=== PATIENT | female | born 1975 | race Caucasian/White ===

== ENCOUNTER 2023-05-20 03:14 | Emergency (ER) | payer OTHER, SELFPAY ==
[2023-05-20 03:14] VITALS: BMI 22.9
[2023-05-20 03:23] VITALS: BP 124/70
[2023-05-20 03:54] LABS: % Basophils 0.6 % (0-2); % Eosinophils 0.3 % (0-6); % Immature Granulocytes 0.3 % (0-0.5); % Lymphocytes 18.7 % (20.5-51.1); % Monocytes 6.1 % (1.7-9.3); Absolute Lymphocytes 1.2 10^3/uL (1.2-3.4); Absolute Monocytes 0.4 10^3/uL (0.1-0.6); Absolute Neutrophils 4.9 10^3/uL (1.4-6.5); Hematocrit 38.3 % (37.0-47.0); Hemoglobin 13.7 g/dL (12.0-16.0); Mean Corp Hgb Conc. 35.8 g/dL (33.0-37.0); Mean Corpuscular Hgb 31.9 pg (27.0-31.0); Mean Corpuscular Volume 89.3 fL (81.0-99.0); Mean Platelet Volume 11.3 fL (7.4-10.4); Nucleated Red Blood Cells % 0 %; Platelet Count 234 10^3/uL (130-400); Red Blood Cell Count 4.29 10^6/uL (4.20-5.40); Red Cell Dist. Width 13.5 % (11.5-14.5); White Blood Cell Count 6.6 10^3/uL (4.8-10.8)
[2023-05-20 04:18] LABS: ALT (SGPT) 21 U/L (0-35); AST (SGOT) 30 U/L (14-36); Albumin 5.2 g/dl (3.5-5.0); Alkaline Phosphatase 82 U/L (38-126); Blood Urea Nitrogen 20 mg/dl (7-17); Calcium 9.5 mg/dl (8.4-10.2); Carbon Dioxide 25 mmol/L (22-30); Chloride 102 mmol/L (98-107); Glucose 132 mg/dl (70-99); Potassium 3.9 mmol/L (3.5-5.1); Sodium 136 mmol/L (135-145); Total Bilirubin 1.6 mg/dl (0.2-1.3); Total Protein 7.9 g/dl (6.3-8.2); eGFR > 60.00
[2023-05-20] MEDS: MORPHINE SULFATE 4 MG IV ×2 (04:49→07:40)
[2023-05-20] MEDS: ZOFRAN 4 MG IV ×3 (04:49→09:29)
--- NOTE | 2023-05-20 05:12 | ED.GENMED ---
History of Present Illness
<Charlotte RosadowsonISMAEL - Last Filed: 05/20/23 05:29>
General
Chief Complaint: Abdominal Pain
Source: patient
Exam Limitations: none
Time Seen by Provider: 05/20/23 04:45
Nursing documentation reviewed up to this point in time: agreed with
Travel History
Have you had any contact with someone who has COVID-19?: No
Do you have any symptoms of coronavirus? Fever > 100 degrees, chills, cough, shortness of breath, sore throat, loss of taste or smell, muscle aches, or headache?: No
History of Present Illness
History of Present Illness:
patient is a 47 y/o female presenting [facility] RLQ pain x 10 hours. patient admits the pain is localized to her RLQ with radiation to the LLQ and umbilcus. patient describes the pain as crampy and pressure like. patient admtis the pain has gotten
progressively worse throughout the day. Patient denies any beltran in diet or any change in abdominal pain with food. Patient admits to nasuea without any episodes of vomiting. Patient denies any fever but admits to sensation of chills. Patient denies
CP, SOB. Patietn admits to alcohol intake saturday night. patient denies smoking, change in diet or medications. Patient admits to sick contacts with work but denies any recent travel.
<Brain Velazquez DO - Last Filed: 05/20/23 13:45>
History of Present Illness
History of Present Illness:
patient is a 47 y/o female presenting [facility] RLQ pain x 10 hours. patient admits the pain is localized to her RLQ with radiation to the LLQ and umbilcus. patient describes the pain as crampy and pressure like. patient admtis the pain has gotten
progressively worse throughout the day. Patient denies any beltran in diet or any change in abdominal pain with food. Patient admits to nasuea without any episodes of vomiting. Patient denies any fever but admits to sensation of chills. Patient denies
CP, SOB. Jaun admits to alcohol intake saturday night. patient denies smoking, change in diet or medications. Patient admits to sick contacts with work but denies any recent travel. Although large amount of stool was noted on CT, the patient
states she had a large bowel movement yesterday. She states he was going to try to drink hot tea to help have a bowel movement I also suggested she try MiraLAX
Review of Systems
<ISMAEL Syed - Last Filed: 05/20/23 05:29>
Review of Systems
All Other Systems: Not applicable
Constitutional: Reports chills
EENT: Reports no symptoms
Respiratory: Reports no symptoms
Cardiac: Reports no symptoms
ABD/GI: Reports abdominal pain (RLQ and umbilicus, + psoas sign, positive rovsing sign) and nausea
: Reports no symptoms
Musculoskeletal: Reports no symptoms
Skin: Reports no symptoms
Neurological: Reports no symptoms
Endocrine: Reports no symptoms
Hematologic/Lymphatic: Reports no symptoms
Psychiatric: Reports no symptoms
Phy Exam
<ISMAEL Syed - Last Filed: 05/20/23 05:29>
General Physical Exam
General Presentation: well appearing and no apparent distress
General Skin: warm and dry
General Habitus: normal
General Mental: alert
General Hydration: appears well hydrated
ENT Exam
ENT Exam: EOMI, pharynx normal, neck supple and normocephalic
Eye Exam
Eye Exam: PERRL, cornea clear and conjunctiva normal
Cardiovascular Exam
Cardiovascular Exam: regular rate/rhythm, no edema, no murmur and normal peripheral pulses
Pulmonary Exam
Pulmonary Exam: lungs clear, no respiratory distress, no rales, no crackles, no rhonchi, no stridor, no wheezing and no cough
Gastrointestinal Exam
Gastrointestinal Exam: guarding and tender (RLQ with positive psoas and rovsing sign )
Palpation: left lower quadrant: Mild tenderness and right lower quadrant: Moderate tenderness
Neurological Exam
Neurological Exam: alert, oriented x3, no motor deficits and speech normal
Musculoskeletal Exam
Musculoskeletal Exam: full ROM and no edema
Skin Exam
Skin Exam: normal color, warm/dry, no rash and no petechia
Psychiatric Exam
Psychiatric Exam: normal mood/affect
Course
<ISMAEL Syed - Last Filed: 05/20/23 05:29>
Orders/Labs/Results
Orders:
Orders
05/20/23 03:44
CBC/With Diff [Complete Blood Count/With Diff] Urgent
CMP [Comprehensive Metabolic Panel] Urgent
05/20/23 04:45
Morphine Sulfate 4 mg IV NOW STA
Ondansetron Injectable [Zofran] 4 mg IV NOW STA
05/20/23 05:20
Iohexol [Omnipaque] See Protocol PO NOW STA
05/20/23 05:21
CT Abd/pel W Iv And Oral Contr Urgent
Comment:
Reason For Exam: RLQ abd pain
05/20/23 06:39
Morphine Sulfate 4 mg IV NOW STA
Ondansetron Injectable [Zofran] 4 mg IV NOW STA
05/20/23 09:23
HYDROmorphone [Dilaudid] 0.5 mg IV NOW STA
05/20/23 09:25
Ondansetron Injectable [Zofran] 4 mg .ROUTE .STK-MED ONE
05/20/23 09:28
Ondansetron Injectable [Zofran] 4 mg IV NOW STA
05/20/23 10:52
US Pelvis Transvaginal Only Urgent
Reason For Exam: R pelvis pain fluid noted on R on CT
05/20/23 12:32
Test Result ONCE
05/20/23 12:37
HCG, Urine Qualitative Screen Urgent
Date Specimen was Collected: 05/20/23
Time Specimen was Collected: 12:36
Urinalysis Reflex To Culture Urgent
Date Specimen was Collected: 05/20/23
Time Specimen was Collected: 12:36
Abnormal Lab Results
05/20/23
03:44
MCH 31.9 H pg
(27.0-31.0)
MPV 11.3 H fL
(7.4-10.4)
Lymphocytes % 18.7 L %
(20.5-51.1)
BUN 20 H mg/dl
(7-17)
Glucose 132 H mg/dl
(70-99)
Total Bilirubin 1.6 H mg/dl
(0.2-1.3)
Albumin 5.2 H g/dl
(3.5-5.0)
05/20/23 03:44
05/20/23 03:44
Vital Signs
Initial and Last Documented VS:
Initial Vital Signs
Temp Pulse Resp BP Pulse Ox
97.8 F 104 22 124/70 100
05/20/23 03:23 05/20/23 03:23 05/20/23 03:23 05/20/23 03:23 05/20/23 03:23
Last Documented Vital Signs
Temp Pulse Resp BP Pulse Ox
97.8 F 104 22 124/70 100
05/20/23 03:23 05/20/23 03:23 05/20/23 03:23 05/20/23 03:23 05/20/23 03:23
Gabrielalt;Izaiah Garcia DO - Last Filed: 05/20/23 06:56>
Orders/Labs/Results
Orders:
Orders
05/20/23 03:44
CBC/With Diff [Complete Blood Count/With Diff] Urgent
CMP [Comprehensive Metabolic Panel] Urgent
05/20/23 04:45
Morphine Sulfate 4 mg IV NOW STA
Ondansetron Injectable [Zofran] 4 mg IV NOW STA
05/20/23 05:20
Iohexol [Omnipaque] See Protocol PO NOW STA
05/20/23 05:21
CT Abd/pel W Iv And Oral Contr Urgent
Comment:
Reason For Exam: RLQ abd pain
05/20/23 06:39
Morphine Sulfate 4 mg IV NOW STA
Ondansetron Injectable [Zofran] 4 mg IV NOW STA
05/20/23 09:23
HYDROmorphone [Dilaudid] 0.5 mg IV NOW STA
05/20/23 09:25
Ondansetron Injectable [Zofran] 4 mg .ROUTE .STK-MED ONE
05/20/23 09:28
Ondansetron Injectable [Zofran] 4 mg IV NOW STA
05/20/23 10:52
US Pelvis Transvaginal Only Urgent
Reason For Exam: R pelvis pain fluid noted on R on CT
05/20/23 12:32
Test Result ONCE
05/20/23 12:37
HCG, Urine Qualitative Screen Urgent
Date Specimen was Collected: 05/20/23
Time Specimen was Collected: 12:36
Urinalysis Reflex To Culture Urgent
Date Specimen was Collected: 05/20/23
Time Specimen was Collected: 12:36
Abnormal Lab Results
05/20/23
03:44
MCH 31.9 H pg
(27.0-31.0)
MPV 11.3 H fL
(7.4-10.4)
Lymphocytes % 18.7 L %
(20.5-51.1)
BUN 20 H mg/dl
(7-17)
Glucose 132 H mg/dl
(70-99)
Total Bilirubin 1.6 H mg/dl
(0.2-1.3)
Albumin 5.2 H g/dl
(3.5-5.0)
05/20/23 03:44
05/20/23 03:44
Vital Signs
Initial and Last Documented VS:
Initial Vital Signs
Temp Pulse Resp BP Pulse Ox
97.8 F 104 22 124/70 100
05/20/23 03:23 05/20/23 03:23 05/20/23 03:23 05/20/23 03:23 05/20/23 03:23
Last Documented Vital Signs
Temp Pulse Resp BP Pulse Ox
97.8 F 104 22 124/70 100
05/20/23 03:23 05/20/23 03:23 05/20/23 03:23 05/20/23 03:23 05/20/23 03:23
<Brain Velazquez DO - Last Filed: 05/20/23 13:45>
Orders/Labs/Results
Orders:
Orders
05/20/23 03:44
CBC/With Diff [Complete Blood Count/With Diff] Urgent
CMP [Comprehensive Metabolic Panel] Urgent
05/20/23 04:45
Morphine Sulfate 4 mg IV NOW STA
Ondansetron Injectable [Zofran] 4 mg IV NOW STA
05/20/23 05:20
Iohexol [Omnipaque] See Protocol PO NOW STA
05/20/23 05:21
CT Abd/pel W Iv And Oral Contr Urgent
Comment:
Reason For Exam: RLQ abd pain
05/20/23 06:39
Morphine Sulfate 4 mg IV NOW STA
Ondansetron Injectable [Zofran] 4 mg IV NOW STA
05/20/23 09:23
HYDROmorphone [Dilaudid] 0.5 mg IV NOW STA
05/20/23 09:25
Ondansetron Injectable [Zofran] 4 mg .ROUTE .STK-MED ONE
05/20/23 09:28
Ondansetron Injectable [Zofran] 4 mg IV NOW STA
05/20/23 10:52
US Pelvis Transvaginal Only Urgent
Reason For Exam: R pelvis pain fluid noted on R on CT
05/20/23 12:32
Test Result ONCE
05/20/23 12:37
HCG, Urine Qualitative Screen Urgent
Date Specimen was Collected: 05/20/23
Time Specimen was Collected: 12:36
Urinalysis Reflex To Culture Urgent
Date Specimen was Collected: 05/20/23
Time Specimen was Collected: 12:36
Abnormal Lab Results
05/20/23
03:44
MCH 31.9 H pg
(27.0-31.0)
MPV 11.3 H fL
(7.4-10.4)
Lymphocytes % 18.7 L %
(20.5-51.1)
BUN 20 H mg/dl
(7-17)
Glucose 132 H mg/dl
(70-99)
Total Bilirubin 1.6 H mg/dl
(0.2-1.3)
Albumin 5.2 H g/dl
(3.5-5.0)
05/20/23 03:44
05/20/23 03:44
Vital Signs
Initial and Last Documented VS:
Initial Vital Signs
Temp Pulse Resp BP Pulse Ox
97.8 F 104 22 124/70 100
05/20/23 03:23 05/20/23 03:23 05/20/23 03:23 05/20/23 03:23 05/20/23 03:23
Last Documented Vital Signs
Temp Pulse Resp BP Pulse Ox
97.8 F 104 22 124/70 100
05/20/23 03:23 05/20/23 03:23 05/20/23 03:23 05/20/23 03:23 05/20/23 03:23
<ISMAEL Syed - Last Filed: 05/20/23 05:29>
MDM/Problems Addressed
Differential Diagnosis Includes:
appendicitis
cholecystitis
ovarian torsion
MDM/Problems Addressed:
abdominal pain
<ISMAEL Syed - Last Filed: 05/20/23 05:29>
*Critical Care Note
Total Time (30-74mins, 75-104mins- exclusive of procedures): Not Applicable
<Brain Velazquez DO - Last Filed: 05/20/23 13:45>
Update Note
Update Note:
I received signout from Dr. Garcia at [address] imaging shows normal appendix but does show a moderate amount of fluid in the right paracolic gutter. The pain is primarily in the right lower quadrant. We did obtain ultrasound imaging
which showed 2.2 cm ovarian cyst on the right. Given the unexplained significant amount of fluid, I have contacted Dr. Vasquez on-call for [facility] as the patient preferred to follow-up with [facility] as opposed to [facility]. She recommended
outpatient follow-up with her detective captain but her office may be able to see later in the week. Also given the findings on CT, I have consulted Dr. Leach and asked for consultation. I spoke to Dr. Leach who evaluated patient at bedside at about
1:30 PM. We suspect more of a gynecologic etiology of free fluid such as ruptured ovarian cyst. She is to take MiraLAX and I also recommended NSAIDs and will give short course of Zofran and Percocet.
ED Attending Note
<ISMAEL Syed - Last Filed: 05/20/23 05:29>
-
Portions of this chart may have been created with voice recognition software.� Occasional wrong word or��sound alike� substitutions may have occurred due to the inherent limitations of voice recognition software.
<Izaiah Garcia, DO - Last Filed: 05/20/23 06:56>
ED Attending Note
Patient seen and examined by attending physician: Yes
I performed the substantive portion of visit, reviewed & personally made and approve the management plan that is documented in note by myself or GEOVANNY.: Yes
ED Attending Note:
Pleasant 47-year-old female that presents with right lower quadrant abdominal pain that has been present for the last 10 hours. Patient states that the pain is localized to her right lower quadrant. She states that it is crampy and pressure-like.
Reports that the pain is worsened throughout the day. She typically eats a very similar lunch each day and today she was unable to eat .it. 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 Patient has not had any oral contact since 6 PM. Has
been eating normally until that point. Denies any previous abdominal surgery.
Vital signs are stable. Patient not hypoxic
Nursing note reviewed. I agree with nursing documentation up to this point in time.
Home Meds and allergies reviewed.
NUMBER AND COMPLEXITY OF PROBLEMS ADDRESSED AT THE ENCOUNTER
� Chronic conditions affecting care: None
� Acute Exacerbation and/or Progression of Chronic Illness:
� Differential Diagnosis includes: Gastroenteritis, colitis, Crohn's, constipation
AMOUNT AND/OR COMPLEXITY OF DATA TO BE REVIEWED AND ANALYZED
I performed an independent evaluation of the following and my interpretation is:
EKG:
CT:
X-rays:
Ultrasound:
Laboratory Studies: White cell count 6.6
Other:
Review of other/old records:
Clinical information was obtained by an independent historian:
Prescriptions/Medications Considered but not given:
Further testing considered but not performed:
RISK OF COMPLICATIONS AND/OR MORBIDITY OR MORTALITY OF PATIENT MANAGEMENT
Social determinants of health affecting care: Good Social Support
Discussion with other providers:
Escalation of care including admission/observation vs risk of discharge considered:
CRITICAL CARE NOTE: Not applicable
Total Time (exclusive of procedures):
Update:
Discharge Plan
Departure
Patient Disposition: Home (Routine Discharge)
Date of Disposition: 05/20/23
Time of Disposition: 13:38
Patient with high blood pressure during this ER visit?: Yes
Discharge Problem:
Abdominal pain
Instructions: Abdominal Pain
Prescriptions:
New
oxycodone-acetaminophen [Percocet] 5-325 mg tablet
1 - 2 tab PO Q6HPRN PRN (Reason: pain) Qty: 14 0RF
ondansetron HCl 4 mg tablet
4 mg PO Q6H PRN (Reason: nausea and vomiting) Qty: 14 0RF
Referrals:
Maddison Middleton, DO [Family Provider] -
Chiara Vasquez MD [Active] - Follow up in 2-3 days
Activity Restrictions/Additional Instructions:
I recommend that you take angy-vjg-tjglcim MiraLAX daily. I have given you the contact information for the local detective captain that I spoke to today, Dr. Vasquez however she thinks that you might be able to get into see your own detective captain sooner. I
recommend 3-4 [id number]-[id number] ibuprofen (Motrin) every 8 hours with food for a few days. Return here if worse.
Interventions
Interventions:
*Risk Screen - Suicide Last Done: 05/20/23 03:23
*General Assessment Last Done: 05/20/23 06:32
*Neglect/Abuse Screening Last Done: 05/20/23 03:23
ED- Fall Risk Assessment Last Done: 05/20/23 06:32
CJ-Dxojyq-Efuottawtw Assessment Last Done: 05/20/23 06:32
[2023-05-20] MEDS: OMNIPAQUE 50 ML PO (05:28)
[2023-05-20] MEDS: DILAUDID 0.5 MG IV (09:29)
[2023-05-20 12:58] LABS: Urine Albumin Negative (Neg - Trace); Urine Bilirubin Negative (Negative); Urine Character Clear (Clear); Urine Color Yellow; Urine Glucose Negative (Negative); Urine Ketone Negative (Negative); Urine Leukocyte Negative (Negative); Urine Nitrite Negative (Negative); Urine Occult Blood Negative (Negative); Urine Specific Gravity 1.015 (<1.030); Urine Urobilinogen Negative (Neg - 1+)
[2023-05-20 13:05] LABS: HCG, Urine Qualitative Screen Negative
--- NOTE | 2023-05-20 13:47 | CON.GS ---
Addendum entered and electronically signed by Sharath Leach MD 05/20/23 15:13:
I saw and examined the patient independently.
The resident's note was reviewed and I agree with the note, assessment and plan except where noted below.
Comment: [47-year-old female presents with fairly sudden onset right lower quadrant abdominal pain now rating up to the right upper quadrant and across the epigastrium. No fever but +chills and rigors. Here she is afebrile vital signs are stable
and has mild focal tenderness in the right lower quadrant and the right upper quadrant. No leukocytosis and a CT scan demonstrates significant stool burden (despite patient denying any history of constipation), a 2.2 cm right adnexal cyst, free
fluid up the right paracolic gutter and fairly normal-appearing appendix with on my read air in the lumen of the appendix concerning for a ruptured ovarian cyst.]
No acute general surgery intervention warranted at this time. We did discuss signs and symptoms to look out for that should prompt a return to the ED but for now would manage expectantly.
Patient does have a spot sprayer which she will follow-up with or will make an appointment for 1 here at [place].
She will begin a bowel regimen with MiraLAX daily as well as Colace twice daily for her constipation. If this becomes a persistent issue she will reach out to gastroenterology for follow-up.
All questions answered, patient agreeable to plan.
General surgery will sign off for now, please call with any questions or concerns.
I spent roughly 60 minutes in total for the care of this patient today including direct patient care and counseling, reviewing labs, imaging, coordination of care, as well as documentation.
Original Note:
Medical History
-
Chief Complaint: Right lower quadrant abdominal pain
History of Present Illness:
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 She describes sharp, crampy pain and
pressure that is worsened with oral intake, positional change and supine position, relieved by lying on her left side. There is radiation to epigastrium and RUQ. Last bowel movement was yesterday morning, last meal at 4:30pm yesterday. She denies
passing flatus since onset of symptoms.
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 Recent mild GI illness with one episode of vomiting one week ago. She has no hx of abdominal surgeries, and has regular bowel movements once daily. Previous endoscopy + colonoscopy 10
years ago revealed gastritis. Of note, she has the Mirena IUD for irregular bleeding.
Past Medical History
Past Medical History: GERD and Other (mitral valve prolapse, gastritis, bone tumor)
Past Surgical History: Orthopedic
Social History
Tobacco: Non-Smoker
Alcohol: Occasional
Drug: None
Personal:
Living: With Family
Employment: Employed (ER nurse)
Family History
Family History: Reviewed & Not Pertinent
Allergies / Home Medications
Allergy/AdvReac Type Severity Reaction Status Date / Time
Penicillins Allergy Unknown Verified 05/20/23 03:25
Medication Instructions Recorded Confirmed Type
ondansetron HCl 4 mg tablet 4 mg PO Q6H PRN nausea and 05/20/23 Rx
vomiting #14 tabs
oxycodone-acetaminophen 5 mg-325 1 - 2 tab PO Q6HPRN PRN pain #14 05/20/23 Rx
mg tablet (Percocet) tabs
Review of Systems
-
History Source: Patient
Constitutional: Fever (negative) and Chills
Respiratory: Trouble Breathing (negative)
Cardiac: Chest Pain (negative), Palpitations (negative) and Syncope (negative)
Abdomen/GI: Abdominal Pain, Nausea, Vomiting (negative), Diarrhea (negative), Constipated (negative) and Bloody Stools (negative)
: Dysuria (negative), Flank Pain (negative), Difficulty Voiding (negative) and Bleeding (negative)
Neurological: Dizzy (negative) and Headache (negative)
A 10 point review of systems was completed, and was negative except as per HPI.
Physical Exam
Vital Signs
Temp Pulse Resp BP Pulse Ox
97.8 F 104 22 124/70 100
18 03:23 18 03:23 05/20/23 03:23 05/20/23 03:23 05/20/23 03:23
05/19/23 05/20/23 05/21/23
06:59 06:59 06:59
Actual Weight 56.7 kg
Body Mass Index (BMI) 22.9
Lab Results
05/20/23 03:44
05/20/23 03:44
WBC 6.6 10^3/uL (4.8-10.8) 05/20/23 03:44
Hgb 13.7 g/dL (12.0-16.0) 05/20/23 03:44
Hct 38.3 % (37.0-47.0) 05/20/23 03:44
Plt Count 234 10^3/uL (130-400) 05/20/23 03:44
Abs Immat Gran (auto) 0.0 10^3/uL (0-0.05) 05/20/23 03:44
Neutrophils % 74.0 % (42.2-75.2) 05/20/23 03:44
Physical Exam
General: Well Developed and Pain
Respiratory: Clear and Non Labored Respirations
Cardiac: S1/S2 and Regular Rhythm
GI: Soft, Normal Bowel Sounds, Distended (mildly) and Other (Focally tender in RLQ, Positive Rovsing's sign. Negative Brian's sign. No rebound. )
Skin: Warm and Dry
Neuro: Awake, Alert and Oriented
Psych: Calm
Assessment / Plan
-
47 yr old female presents with acute onset focal RLQ crampy abdominal pain x1 day with nausea and rigors. Likely right ovarian cyst rupture, low suspicion for appendicitis.
RLQ pain:
- Ruptured ovarian cyst vs appendicitis. CT with oral and IV contrast showed free fluid in right paracolic gutter, appendix appears normal. Increased risk of ovarian cyst due to hormonal IUD.
- No surgical intervention. Supportive care as needed.
- Follow up with gynecology outpatient as needed
[2023-05-20 14:03] VITALS: BP 105/55
== END 2023-05-20 14:04 | disposition home or self-care (01) ==
LOC: EMR 03:14
PROVIDERS: Emergency Medicine; EMERGENCY PHYSICIAN Student in an Organized Health Care Education/Training Program; FAMILY PHYSICIAN Family Medicine; OTHER PHYSICIAN Surgery
DX: R10.31 Right lower quadrant pain (principal); R10.33 Periumbilical pain; N83.201 Unspecified ovarian cyst, right side
CPT/HCPCS: 99285; 96374; 96375 ×2; 96376 ×2; 74177; 76830; 80053; 81003; 81025; 85025; Q9967

== ENCOUNTER 2024-04-06 07:22 | Emergency (ER) | payer OTHER, SELFPAY ==
[2024-04-06 07:28] VITALS: BP 161/86
[2024-04-06 07:45] LABS: % Eosinophils 0.4 % (0-6); % Immature Granulocytes 0.2 % (0-0.5); % Lymphocytes 32.5 % (20.5-51.1); % Monocytes 8.7 % (1.7-9.3); % Neutrophils 57.2 % (42.2-75.2); Absolute Basophils 0.1 10^3/uL (0-0.2); Absolute Lymphocytes 1.7 10^3/uL (1.2-3.4); Absolute Monocytes 0.5 10^3/uL (0.1-0.6); Hematocrit 39.3 % (37.0-47.0); Hemoglobin 13.7 g/dL (12.0-16.0); Mean Corp Hgb Conc. 34.9 g/dL (33.0-37.0); Mean Corpuscular Hgb 31.8 pg (27.0-31.0); Mean Corpuscular Volume 91.2 fL (81.0-99.0); Nucleated Red Blood Cells % 0 %; Platelet Count 205 10^3/uL (130-400); Red Blood Cell Count 4.31 10^6/uL (4.20-5.40); Red Cell Dist. Width 13.2 % (11.5-14.5); White Blood Cell Count 5.3 10^3/uL (4.8-10.8)
[2024-04-06 07:55] LABS: ALT (SGPT) 20 U/L (0-35); AST (SGOT) 37 U/L (14-36); Albumin 5.5 g/dl (3.5-5.0); Alkaline Phosphatase 82 U/L (38-126); Blood Urea Nitrogen 13 mg/dl (7-17); Calcium 9.6 mg/dl (8.4-10.2); Carbon Dioxide 28 mmol/L (22-30); Chloride 99 mmol/L (98-107); Glucose 121 mg/dl (70-99); Potassium 4.5 mmol/L (3.5-5.1); Sodium 139 mmol/L (135-145); Total Bilirubin 1.6 mg/dl (0.2-1.3); Total Protein 8.4 g/dl (6.3-8.2); eGFR > 60.00
[2024-04-06 08:07] LABS: Troponin I < 0.012 ng/ml
[2024-04-06 09:09] VITALS: BMI 21.4
--- NOTE | 2024-04-06 09:10 | EDRN ---
Pt states she was awoken at 5:00 am w/ chest pressure in her L chest, had palpitations/rapid heart rate, and inability to lie flat as she could not catch her breath if lying flat. Pt got lightheaded and was unable to fall back to sleep.
[2024-04-06 09:11] VITALS: BP 133/69
--- NOTE | 2024-04-06 09:45 | ED.GENMED ---
History of Present Illness
General
Chief Complaint: Breathing Problem
Time Seen by Provider: 04/06/24 09:17
History of Present Illness
History of Present Illness:
Patient is a 48-year-old woman presenting to the emergency department with difficulty breathing. Patient states that for the past few weeks she has been having some difficulty with laying flat. She feels as if she is suffocating and has a hard
time breathing. When she sits up the symptoms resolved. She denies any leg swelling. She did have an episode of chest pain that occurred 5 days ago when she was exercising on her treadmill. She states that when she stopped running the chest pain
resolved. Her mother did pass away at the age of 48 after a cardiac arrest secondary to a heart attack. She did follow-up with cardiology and had a cardiac MRI and an echo. She did have a mild leaky mitral valve. Unfortunately patient has not
followed up with cardiology since then. She also notes that intermittently she has had palpitations lightheadedness dizziness. They can occur at any time. No chest pain with those. No leg swelling hemoptysis malignancy or hormone use. No
history of blood clots.
Phy Exam
Physical Exam
Physical Exam:
GENERAL: in no acute distress
HEENT: normocephalic, extraocular movements intact, moist oral mucosa
NECK: normal inspection
RESPIRATORY: no respiratory distress, clear to auscultation bilaterally
CARDIOVASCULAR: regular rate and rhythm
ABDOMEN/: soft, non-distended, non-tender to palpation, no rebound or guarding
EXTREMITIES: non-tender, no edema/swelling
NEUROLOGIC: awake and alert, moves all extremities
SKIN: warm
Scores
Heart Failure Risk
Heart Failure Risk Score: Not Applicable
Course
Orders/Labs/Results
Orders:
Orders
04/06/24 07:31
Electrocardiogram (*1) Urgent
Reason for Study: Shortness of Breath
04/06/24 07:32
EKG- Treatment ONCE
04/06/24 07:37
Complete Blood Count/With Diff Urgent
Comprehensive Metabolic Panel Urgent
Magnesium Urgent
Troponin I Urgent
04/06/24 09:18
CR Chest - 2 Views Urgent
Comment:
Reason For Exam: sob
04/06/24 09:42
NT-proBNP Urgent
Thyroid Stimulating Hormone to Reflex [TSH Reflex To Free T4] Urgent
Abnormal Lab Results
04/06/24
07:37
MCH 31.8 H pg
(27.0-31.0)
MPV 11.0 H fL
(7.4-10.4)
Glucose 121 H mg/dl
(70-99)
Total Bilirubin 1.6 H mg/dl
(0.2-1.3)
AST 37 H U/L
(14-36)
Total Protein 8.4 H g/dl
(6.3-8.2)
Albumin 5.5 H g/dl
(3.5-5.0)
04/06/24 07:37
04/06/24 07:37
Vital Signs
Initial and Last Documented VS:
Initial Vital Signs
Temp Pulse Resp BP Pulse Ox
98.4 F 99 18 161/86 100
04/06/24 07:28 04/06/24 07:28 04/06/24 07:28 04/06/24 07:28 04/06/24 07:28
Last Documented Vital Signs
Temp Pulse Resp BP Pulse Ox
98.4 F 73 17 126/66 99
04/06/24 07:28 04/06/24 11:00 04/06/24 11:00 04/06/24 11:00 04/06/24 11:00
MDM/Problems Addressed
Differential Diagnosis Includes:
Patient is a 48-year-old woman presenting to the emergency department with chest pain that occurred while exercising that has since resolved, intermittent orthopnea and intermittent palpitations. Vitals here are unremarkable and exam is reassuring.
I did do a bedside echo that did show a grossly normal ejection fraction and no B-lines bilaterally. Differential consists of pulmonary edema/new onset heart failure, electrolyte abnormalities, thyroid problem, atypical ACS. Considered PE though
less likely given history and exam. She is PERC negative. Blood work obtained prior to my evaluation is unremarkable. Will obtain BNP magnesium thyroid. Will also obtain chest x-ray. EKG per my interpretation normal sinus rhythm.
I did lay patient flat for my bedside ultrasound. Her oxygen did stay normal the entire time and patient was not in any respiratory distress.
*Critical Care Note
Total Time (30-74mins, 75-104mins- exclusive of procedures): Not Applicable
Update Note
Update Note:
Blood work unremarkable. Chest x-ray per my interpretation with no pulmonary vascular congestion. I did discuss with patient the importance of following up with cardiology. Given her chest pain that occurred a few days ago with family history
will give her rapid cardiology follow-up. Will discharge at this time. Strict return precautions given.
ED Attending Note
-
Portions of this chart may have been created with voice recognition software.� Occasional wrong word or��sound alike� substitutions may have occurred due to the inherent limitations of voice recognition software.
Discharge Plan
Departure
Patient Disposition: Home (Routine Discharge)
Date of Disposition: 04/06/24
Time of Disposition: 11:38
Patient with high blood pressure during this ER visit?: No
Discharge Problem:
Shortness of breath, Palpitations, Chest pain
Instructions: Chest Pain DCA Follow Up
Prescriptions:
No Action
oxycodone-acetaminophen [Percocet] 5-325 mg tablet
1 - 2 tab PO Q6HPRN PRN (Reason: pain) Qty: 14 0RF
ondansetron HCl 4 mg tablet
4 mg PO Q6H PRN (Reason: nausea and vomiting) Qty: 14 0RF
Referrals:
Maddison Middleton, [Family Provider] -
Dustin Cruz MD [Active] -
Activity Restrictions/Additional Instructions:
You were evaluated in the Emergency Department today for chest pain and shortness of breath . Your evaluation has shown no signs of medical conditions requiring emergent intervention at this time, however we recommend that you follow up with your
primary care physician or your rules examiner as soon as possible for further testing as an outpatient.
Please schedule an appointment for follow up with your primary care physician as soon as possible.
Return to the Emergency Department if you experience worsening or uncontrolled chest pain, shortness of breath, light headedness, feeling faint, nausea, vomiting, or any other concerning symptoms.
Thank you for choosing us for your care.
Interventions
Interventions:
*Risk Screen - Suicide Last Done: 04/06/24 09:09
*General Assessment Last Done: 04/06/24 09:09
*Neglect/Abuse Screening Last Done: 04/06/24 09:09
ED- Fall Risk Assessment Last Done: 04/06/24 09:09
*ED COVID-19 Vaccine History Last Done: 04/06/24 09:09
ED- Cardiac Assessment Last Done: 04/06/24 09:09
ED- Pulmonary Assessment Last Done: 04/06/24 09:09
Discharge Date and Time
Print Language: MOROCCAN
[2024-04-06 10:11] VITALS: BP 125/66
[2024-04-06 10:24] LABS: NT-proBNP 151 pg/ml
--- NOTE | 2024-04-06 10:35 | EDRN ---
Magnesium was deemed hemolyzed and lab called and now added to 7:37 SST tube at this time which was not deemed as hemolyzed.
[2024-04-06 10:43] LABS: TSH Reflex To Free T4 1.62 uIU/ml (0.47-4.68)
[2024-04-06 11:00] VITALS: BP 126/66
[2024-04-06 11:17] LABS: Magnesium 2.1 mg/dl (1.6-2.3)
--- NOTE | 2024-04-06 12:05 | EDRN ---
Pt left discharge plan in room w/ call placed to pt's phone and number for Dr. Cruz left on message machine and call back number for this RN.
== END 2024-04-06 11:55 | disposition home or self-care (01) ==
LOC: EMR 07:22
PROVIDERS: Emergency Medicine; EMERGENCY PHYSICIAN Student in an Organized Health Care Education/Training Program; FAMILY PHYSICIAN Family Medicine
DX: R07.9 Chest pain, unspecified (principal); R06.02 Shortness of breath; R00.2 Palpitations; Z82.41 Family history of sudden cardiac death
CPT/HCPCS: 99285; 71046; 80053; 83735; 83880; 84443; 84484; 85025; 93005

== ENCOUNTER → 2024-06-16 08:37 | Outpatient (REF) | payer OTHER, SELFPAY | LOC: RCS 08:37 | PROVIDERS: ATTENDING PHYSICIAN Internal Medicine Cardiovascular Disease; FAMILY PHYSICIAN Family Medicine | DX: R07.9 Chest pain, unspecified (principal) | CPT/HCPCS: 93017; 93350 ==